=== PATIENT | female | born 1995 | race Caucasian/White ===

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

== ENCOUNTER 2017-03-11 13:51 | Emergency (ER) | payer BC ==
[2017-03-11 14:19] VITALS: BP 106/60
--- NOTE | 2017-03-11 14:52 | UC ---
Throat Pain/Nasal Jose Guadalupe HPI - HPI Summary HPI Summary: Sore throat for past 3-4 days. Denies chest congestion, cough, fever, or chills. 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 - History of Current Complaint Chief Complaint: UCRespiratory Stated Complaint: SORE THROAT EYE ISSUE Time Seen by Provider: 03/11/17 14:52 Hx Obtained From: Patient Hx Last Menstrual Period: 03/04/17 ?: No Onset/Duration: Gradual Onset Severity: Moderate Cough: None Associated Signs & Symptoms: Negative: FB Sensation, Drooling, Wheezing, Hoarseness, Fever, Rash - Allergies/Home Medications Allergies/Adverse Reactions: Allergies Allergy/AdvReac Type Severity Reaction Status Date / Time Sulfa Antibiotics Allergy Hives Verified 03/11/17 14:14 PMH/Surg Hx/FS Hx/Imm Hx Previously Healthy: Yes - Surgical History Surgical History: Yes Surgery Procedure, Year, and Place: [facility] - Family History Known Family History: Positive: Hypertension - Social History Alcohol Use: None Substance Use Type: None Smoking Status (MU): Never Smoked Tobacco Review of Systems Constitutional: Negative Skin: Negative Eyes: Eye Redness - Right eye, but improving. ENT: Sore Throat Respiratory: Negative Cardiovascular: Negative Gastrointestinal: Negative Neurological: Negative Psychological: Negative Is Patient Immunocompromised?: No All Other Systems Reviewed And Are Negative: Yes Physical Exam Triage Information Reviewed: Yes Appearance: Well-Nourished, Ill-Appearing Vital Signs: Initial Vital Signs Temp 98.2 F 03/11/17 14:15 Pulse 73 03/11/17 14:15 Resp 20 03/11/17 14:15 BP 106/60 03/11/17 14:15 Pulse Ox 99 03/11/17 14:15 Vital Signs Reviewed: Yes Eyes: Positive: Conjunctiva Inflamed - Mild in right eye. Pt says it is improving ENT: Positive: Hearing grossly normal, Pharyngeal erythema, TMs normal, Tonsillar swelling, Muffled/hoarse voice. Negative: Nasal congestion, Nasal drainage, TM bulging, TM dull, TM red, Tonsillar exudate, Trismus Neck: Positive: Supple, Tenderness @ - B/L submandibular gland, Enlarged Nodes @ - Submandibular b/l approx 3-5mm in size Respiratory: Positive: Chest non-tender, Lungs clear, Normal breath sounds, No respiratory distress, No accessory muscle use Cardiovascular: Positive: RRR, No Murmur Neurological: Positive: Alert Psychological: Positive: Age Appropriate Behavior Skin: Negative: rashes, significant lesion(s) Throat Pain/Nasal Course/Dx - Course Course Of Treatment: A POC rapid strep was done in the office and was negative. Will treat based on clinical symptoms. Rx for zpak - Differential Dx/Diagnosis Differential Diagnosis/HQI/PQRI: Laryngitis, Mononucleosis, Pharyngitis, Tonsillitis, URI Provider Diagnoses: Pharyngitis Discharge - Discharge Plan Condition: Stable Disposition: HOME Prescriptions: Azithromyxin ZELALEM (NF) [Z-Zelalem (Zithromax) 250 mg tabs #6] 2 tab PO .TODAY, THEN 1 DAILY #6 tab Patient Education Materials: Pharyngitis (ED), Strep Throat (ED) Referrals: Non Staff,Doctor [Primary Care Provider] -
== END 2017-03-11 15:37 | disposition home or self-care (01) ==
LOC: UCEAST 13:51
DX: J02.9 Acute pharyngitis, unspecified (principal); Z88.2 Allergy status to sulfonamides
CPT/HCPCS: 87651; 99212; G0463

== ENCOUNTER 2017-06-27 10:14 | Emergency (ER) | payer BC ==
[2017-06-27 10:28] VITALS: BP 109/52
--- NOTE | 2017-06-27 11:45 | UC ---
Throat Pain/Nasal Jose Guadalupe HPI - HPI Summary HPI Summary: Pt presents with sinus pain/pressure/congestion for the last 5 days. Has been taking OTC cold and flu with no relief. Denies fever, chills, cough, SOB, chest pain, body aches. - History of Current Complaint Chief Complaint: UCGeneralIllness Stated Complaint: SINUS ISSUE Time Seen by Provider: 06/27/17 11:43 Hx Obtained From: Patient Hx Last Menstrual Period: three weeks ago Onset/Duration: Gradual Onset Severity: Moderate Pain Intensity: 6 Pain Scale Used: 0-10 Numeric - Allergies/Home Medications Allergies/Adverse Reactions: Allergies Allergy/AdvReac Type Severity Reaction Status Date / Time MS Sulfa Antibiotics Allergy Hives Verified 03/11/17 14:14 [Sulfa Antibiotics] PMH/Surg Hx/FS Hx/Imm Hx Previously Healthy: Yes - Surgical History Surgical History: Yes Surgery Procedure, Year, and Place: [facility] - Family History Known Family History: Positive: Hypertension - Social History Occupation: Student Lives: Alone Alcohol Use: None Substance Use Type: None Smoking Status (MU): Never Smoked Tobacco Review of Systems Constitutional: Negative Skin: Negative Eyes: Negative ENT: Nasal Discharge, Sinus Congestion, Sinus Pain/Tenderness Respiratory: Negative Cardiovascular: Negative Gastrointestinal: Negative Neurological: Negative Psychological: Negative All Other Systems Reviewed And Are Negative: Yes Physical Exam Triage Information Reviewed: Yes Appearance: Well-Appearing, No Pain Distress, Ill-Appearing Vital Signs: Initial Vital Signs Temp 98.1 F 06/27/17 10:23 Pulse 72 06/27/17 10:23 Resp 16 06/27/17 10:23 BP 109/52 06/27/17 10:23 Pulse Ox 100 06/27/17 10:23 Vital Signs Reviewed: Yes Eyes: Positive: Conjunctiva Clear. Negative: Conjunctiva Inflamed, Discharge ENT: Positive: Hearing grossly normal, Pharynx normal, Nasal congestion, Nasal drainage, TMs normal, Tonsillar swelling - 2+, Sinus tenderness, Uvula midline. Negative: Pharyngeal erythema, TM bulging, TM dull, TM red, Tonsillar exudate , Hoarse voice Neck: Positive: Supple, Nontender, No Lymphadenopathy Respiratory: Positive: Lungs clear, Normal breath sounds, No respiratory distress, No accessory muscle use Cardiovascular: Positive: RRR, No Murmur, Pulses Normal Neurological: Positive: Fatigued Psychological: Positive: Age Appropriate Behavior Skin: Negative: rashes Throat Pain/Nasal Course/Dx - Course Course Of Treatment: Sinusitis - amoxicillin - Differential Dx/Diagnosis Provider Diagnoses: Sinusitis Discharge - Discharge Plan Condition: Stable Disposition: HOME Prescriptions: Amoxicillin PO (*) [Amoxicillin 500 MG CAP*] 500 mg PO Q12H #20 cap Patient Education Materials: Sinusitis (ED) Referrals: No Primary Care Phys,NOPCP [Primary Care Provider] - Additional Instructions: If you develop a fever, shortness of breath, chest pain, new or worsening symptoms - please call your PCP or go to the ED.
== END 2017-06-27 12:01 | disposition home or self-care (01) ==
LOC: UCEAST 10:14
DX: J32.9 Chronic sinusitis, unspecified (principal); Z88.2 Allergy status to sulfonamides
CPT/HCPCS: 99212; G0463

== ENCOUNTER 2019-04-20 12:36 | Emergency (ER) | payer BC ==
[2019-04-20 13:03] VITALS: BP 115/68
--- NOTE | 2019-04-20 13:57 | UC ---
Complaint Female HPI - HPI Summary HPI Summary: 24-year-old female presents for onset of dysuria, frequency, and urgency today. Denies fever, chills, abdominal pain, back or flank pain, nausea, vomiting, hematuria, vaginal discharge, or dyspareunia. - History Of Current Complaint Chief Complaint: UCGU Stated Complaint: URINARY ISSUE Time Seen by Provider: 04/20/19 13:49 Hx Obtained From: Patient Hx Last Menstrual Period: irregular Pain Intensity: 4 - Allergies/Home Medications Allergies/Adverse Reactions: Allergies Allergy/AdvReac Type Severity Reaction Status Date / Time Sulfa (Sulfonamide Allergy Intermediate Hives Verified 04/20/19 13:03 Antibiotics) Home Medications: Home Medications Ibuprofen 400 mg PO DAILY WITH MEAL 04/20/19 [History Confirmed 04/20/19] Levonorgestrel (Iud) [Mirena IUD] 0 mcg VAGINAL ONCE 04/20/19 [History Confirmed 04/20/19] PMH/Surg Hx/FS Hx/Imm Hx Previously Healthy: Yes Respiratory History: Asthma - Surgical History Surgical History: Yes Surgery Procedure, Year, and Place: ankle - Family History Known Family History: Positive: Hypertension - Social History Occupation: Employed Full-time Lives: With Family Alcohol Use: Occasionally Substance Use Type: None Smoking Status (MU): Never Smoked Tobacco Review of Systems All Other Systems Reviewed And Are Negative: Yes Constitutional: Negative: Fever Respiratory: Positive: Negative Cardiovascular: Positive: Negative Gastrointestinal: Negative: Abdominal Pain, Vomiting, Nausea Genitourinary: Positive: Dysuria, Frequency, Urgency. Negative: Hematuria, Vaginal/Penile Discharge, Abnormal Bleeding Musculoskeletal: Positive: Negative Neurological: Positive: Negative Is Patient Immunocompromised?: No Physical Exam - Summary Physical Exam Summary: GENERAL APPEARANCE: Well developed, well nourished, alert and cooperative, and appears to be in no acute distress. CARDIAC: Normal S1 and S2. No S3, S4 or murmurs. Rhythm is regular. There is no peripheral edema, cyanosis or pallor. Extremities are warm and well perfused. Capillary refill is less than 2 seconds. Peripheral pulses intact. LUNGS: Clear to auscultation without rales, rhonchi, wheezing or diminished breath sounds. ABDOMEN: Positive bowel sounds. Soft, nondistended, nontender. No guarding or rebound. No masses or hepatosplenomegally. No CVA tenderness. MUSKULOSKELETAL: ROM intact to all extremities. No joint erythema or tenderness. Normal muscular development. Normal gait. SKIN: Skin normal color, texture and turgor with no lesions or eruptions. Triage Information Reviewed: Yes Vital Signs: Initial Vital Signs Temp 98.3 F 04/20/19 13:00 Pulse 70 04/20/19 13:00 Resp 18 04/20/19 13:00 BP 115/68 04/20/19 13:00 Pulse Ox 100 04/20/19 13:00 Vital Signs Reviewed: Yes Complaint Female Dx - Course Course Of Treatment: 24-year-old female presents for onset of dysuria, frequency, and urgency today. Denies fever, chills, abdominal pain, back or flank pain, nausea, vomiting, hematuria, vaginal discharge, or dyspareunia. Afebrile. Vital signs stable. Patient's exam was overall unremarkable. [id number] urinalysis showed 1+ leukocyte esterase and was otherwise within normal limits. Urine culture is pending. Discussed with the patient that based on her symptoms we will start empiric treatment for urinary tract infection pending the urine culture. She is to take Macrobid 100 mg twice a day 5 days. I also provided her with a prescription for Pyridium 1 tablet 3 times a day for 2 days to help with the discomfort. She is to return here or follow up with her primary care provider in 3 days if symptoms are not improving. Anticipatory guidance and warning symptoms reviewed with the patient. Verbalizes understanding and agrees with that of care. - Differential Dx/Diagnosis Differential Diagnosis/HQI/PQRI: , Urinary Tract Infection Provider Diagnosis: UTI (urinary tract infection) Discharge ED - Sign-Out/Discharge Documenting (check all that apply): Patient Departure All imaging exams completed and their final reports reviewed: No Studies - Discharge Plan Condition: Stable Disposition: HOME Prescriptions: Nitrofurantoin Monohyd/M-Cryst [Macrobid 100 mg Capsule] 100 mg PO BID #10 cap Phenazopyridine TAB* [Pyridium 100 mg TAB*] 100 mg PO TID #6 tab Patient Education Materials: Urinary Tract Infection in Women (ED) Referrals: No Primary Care Phys,NOPCP [Primary Care Provider] - Additional Instructions: Your urine test in the clinic today is suggestive of a urinary tract infection. We will start you on an antibiotic to treat for the infection. We will also send a urine culture today to see what bacteria grow out and make sure the antibiotic you were prescribed is appropriate to treat the infection. It will take 48-72 hours to get these results. We will contact you if there is any change in your treatment plan. Start Macrobid 1 tab twice a day for 5 days. Take Pyridium 1 tablet every 8 hours for next 2 days to help with the discomfort. This medication will turn your urine an orange color. Drink plenty of fluids. To help prevent urinary tract infections: 1) Be sure to wipe from front to back. 2) Urinate immediately after any sexual intercourse. 3) Avoid taking bubble baths. Return here or follow up with your primary care provider in 3-5 days if symptoms persist. Seek immediate medical attention in the emergency room if you develop fever greater than 100.5 F, have severe abdominal pain, persistent vomiting, or any worsening of symptoms. - Billing Disposition and Condition Condition: STABLE Disposition: Home
== END 2019-04-20 14:05 | disposition home or self-care (01) ==
LOC: UCEAST 12:36
DX: N39.0 Urinary tract infection, site not specified (principal); J45.909 Unspecified asthma, uncomplicated; Z88.2 Allergy status to sulfonamides
CPT/HCPCS: 81003; 84702; 87077; 87086; 87186; 99212; G0463